=== PATIENT | male | born 1995 | race Caucasian/White ===

== ENCOUNTER 2019-08-28 06:01 | Emergency (ER) | payer BC, OTHER ==
[2019-08-28 06:06] VITALS: BP 158/86
[2019-08-28] MEDS ORDERED: Ibuprofen TAB* 600 MG PO ONE (06:48)
[2019-08-28] MEDS ORDERED: Lidocaine 2% VISCOUS* 15 ML UDC PO ONE (06:48)
[2019-08-28] MEDS ORDERED: Pseudoephedrine TAB* 30 MG PO ONE (07:01)
--- NOTE | 2019-08-28 07:14 | ED ---
Throat Pain/Nasal Congestion - HPI Summary HPI Summary: This patient is a 24-year-old male who presents to the ED with severe left ear pain and mild tenderness to the throat. He states these symptoms began approximately 2 hours [employer]. He states the pain is severe and he is unable to sleep. He has never had these symptoms before. No history of ear infections. Denies fevers, sweats, chills. Denies any chest pain or shortness of breath. Denies any recent illness or recent sick contacts. - History of Current Complaint Chief Complaint: EDEarPain Time Seen by Provider: 08/28/19 06:44 Hx Obtained From: Patient Associated Signs And Symptoms: Positive: Negative - Epiglottits Risk Factors Epiglottis Risk Factors: Negative - Allergies/Home Medications Allergies/Adverse Reactions: Allergies Allergy/AdvReac Type Severity Reaction Status Date / Time MS Penicillins [Penicillins] Allergy UNSURE- Verified 08/28/19 06:03 HAPPENED AT A CHILD PMH/Surg Hx/FS Hx/Imm Hx Previously Healthy: Yes Endocrine/Hematology History: Denies: Hx Diabetes Cardiovascular History: Denies: Hx Hypertension, Hx Pacemaker/ICD History: Denies: Hx Renal Disease Musculoskeletal History: Denies: Hx Rheumatoid Arthritis, Hx Osteoporosis Sensory History: Denies: Hx Hearing Aid Psychiatric History: Denies: Hx Panic Disorder Infectious Disease History: No Infectious Disease History: Denies: Traveled Outside the [place] in Last 30 Days - Social History Occupation: Unemployed Lives: With Family Alcohol Use: None Hx Substance Use: No Substance Use Type: Reports: None Hx Tobacco Use: No Review of Systems Negative: Fever, Chills, Fatigue, Skin Diaphoresis Negative: Diplopia, Drainage Positive: Ear Ache Negative: Palpitations Negative: Cough Negative: Arthralgia, Myalgia Skin: Negative Negative: Headache, Weakness, Paresthesia, Numbness All Other Systems Reviewed And Are Negative: Yes Physical Exam Triage Information Reviewed: Yes Vital Signs On Initial Exam: Initial Vitals Temp Pulse Resp BP Pulse Ox 98.5 F 73 15 158/86 97 08/28/19 06:02 08/28/19 06:02 08/28/19 06:02 08/28/19 06:02 08/28/19 06:02 Vital Signs Reviewed: Yes Appearance: Positive: Well-Appearing, Well-Nourished Skin: Positive: Warm, Skin Color Reflects Adequate Perfusion Head/Face: Positive: Normal Head/Face Inspection Eyes: Positive: EOMI, DELFINO, Conjunctiva Clear ENT: Positive: TMs normal. Negative: Pharyngeal erythema, TM bulging, TM dull, TM red, Tonsillar swelling, Tonsillar exudate Neck: Positive: Supple, Nontender, No Lymphadenopathy Respiratory/Lung Sounds: Positive: Clear to Auscultation, Breath Sounds Present Cardiovascular: Positive: RRR, Pulses are Symmetrical in both Upper and Lower Extremities Musculoskeletal: Positive: Normal, Strength/ROM Intact Neurological: Positive: Speech Normal Psychiatric: Positive: Normal, Affect/Mood Appropriate AVPU Assessment: Alert Procedures - Sedation Patient Received Moderate/Deep Sedation with Procedure: No Diagnostics - Vital Signs Vital Signs Temp Pulse Resp BP Pulse Ox 08/28/19 06:02 98.5 F 73 15 158/86 97 - Laboratory Lab Statement: Any lab studies that have been ordered have been reviewed, and results considered in the medical decision making process. EENT Course/Dx - Course Course Of Treatment: Patient is evaluated for left ear pain and sore throat. On physical examination, there is no pharyngeal erythema or bilateral tonsillar exudates. Patient does not appear ill. Nondiaphoretic and nontoxic appearing. Vital signs are stable. TMs bilaterally without erythema, positive cone of light. No evidence of infection or serous fluid behind the TM. No cervical LAD. Pt is given ibuprofen and sudafed in the ED. This with good relief. Pt dc'd with ear pain. - Diagnoses Provider Diagnoses: Ear pain Discharge ED - Sign-Out/Discharge Documenting (check all that apply): Patient Departure - Discharge Plan Condition: Stable Disposition: HOME Patient Education Materials: Earache (ED) Referrals: No Primary Care Phys,NOPCP [Primary Care Provider] - Additional Instructions: Sudafed over the counter as needed for ear pain/pressure ibuprofen 600mg four times daily Tylenol 650mg four times daily Use these intermittently - Billing Disposition and Condition Condition: STABLE Disposition: Home
== END 2019-08-28 08:24 | disposition home or self-care (01) ==
LOC: ED 06:01
DX: H92.02 Otalgia, left ear (principal); Z88.0 Allergy status to penicillin
CPT/HCPCS: 99282; A9270-GY